=== PATIENT | female | born 1950 | race Caucasian/White ===

== ENCOUNTER 2021-06-11 19:10 | Inpatient (IN) | payer MEDICARE, OTHER ==
[~2021-06-11] VITALS: Ht 162.6 cm; Wt 58.1 kg
--- NOTE | 2021-06-11 05:17 | NUR ---
Arrived via [place] at 2225. AOX4. On NRB mask at 15L, saturating at 93%. night monitor placed, shows Sinus Tachy and PAC Pacing. No signs of acute distress. HOB elevated. Able to make needs known. IV in R AC intact, patent and saline flushed. Admission packet completed. Call lights within reach. Safety measures maintained. Addendum: 06/12/21 at 0825 by ELISA HASTINGS RN Wrong date documented
--- NOTE | 2021-06-11 19:20 | NUR ---
DR AVILES AT BEDSIDE FOR MSE.
[2021-06-11 19:45] LABS: ABG BASE EXCESS 1.4 mmol/L; ABG HCO3 22.7 mmol/L; ABG PCO2 28.4 mmHg (35.0-45.0); ABG PH 7.521 (7.350-7.450); ABG PO2 65.3 mmHg (75.0-100.0); ABG SITE LEFT RADIAL; ABG TOTAL HEMOGLOBIN 16.9 G/dL (12.0-16.0); COHb 1.4 % (0.5-1.5); MetHb 0.2 % (0.0-1.5); O2Hb 92.5 % (94.0-97.0); VENT MODE Nasal Cannula
[2021-06-11] MEDS ORDERED: PITA4TAB PO (19:48)
[2021-06-11] MEDS ORDERED: BUPR-53 PO (19:48)
[2021-06-11] MEDS ORDERED: BUPR-319 PO (19:48)
[2021-06-11] MEDS ORDERED: ALEN70TA80 PO (19:48)
[2021-06-11] MEDS ORDERED: LEVO137T2 PO (19:48)
[2021-06-11] MEDS ORDERED: LOSA50TA39 PO (19:48)
[2021-06-11] MEDS ORDERED: EMPA10TA PO (19:48)
[2021-06-11] MEDS ORDERED: ATEN25TA PO (19:48)
[2021-06-11] MEDS ORDERED: LEVO125T8 PO (19:48)
[2021-06-11] MEDS ORDERED: TRAZ-182 PO (19:48)
[2021-06-11] MEDS ORDERED: LAMO100T17 PO (19:48)
[2021-06-11] MEDS ORDERED: MIRT-93 PO (19:48)
[2021-06-11] MEDS ORDERED: NYST5ORA PO (19:50)
[2021-06-11] MEDS ORDERED: FLUC150T PO (19:50)
[2021-06-11 20:13] LABS: HEMATOCRIT 48.9 % (31.2-41.9); MEAN CORPUSCULAR HEMOGLOBIN 29.7 uug (24.7-32.8); MEAN CORPUSCULAR VOLUME 86.7 fL (75.5-95.3); PLATELET COUNT (AUTO) 299 K/uL (179-408)
--- NOTE | 2021-06-11 20:13 | NUR ---
PER ERMD, PATIENT IS DNI, UNLESS HER HEART STOPS. VERBALIZED BY BOTH PATIENT AND CONFIRMED BY DTR. CALLED EPIC FOR PANEL CALL AT THIS TIME, ON HOLD.
[2021-06-11] MEDS ORDERED: levoFLOXacin 750 MG/D5W 150 ML PIGGYBACK IV ONE (20:15)
--- NOTE | 2021-06-11 20:15 | NUR ---
DR CASTILLO WILL CALL BACK.
[2021-06-11] MEDS ORDERED: levoFLOXacin 750MG/D5W 150 ML IV ONE (20:31)
[2021-06-11 20:34] LABS: ALANINE AMINOTRANSFERASE < 6 U/L (14-59); ALKALINE PHOSPHATASE 122 U/L (50-136); ASPARTATE AMINOTRANSFERASE 28 U/L (15-37); BILIRUBIN,DIRECT < 0.1 mg/dL (0.0-0.2); BILIRUBIN,TOTAL 1.2 mg/dL (0.2-1.0); CARBON DIOXIDE 25 mmol/L (21-32); CHLORIDE 97 mmol/L (98-107); CREATINE KINASE, TOTAL 27 U/L (26-192); CREATININE 0.8 mg/dL (0.6-1.3); GLUCOSE 249 mg/dL (74-106); LACTATE DEHYDROGENASE 381 U/L (81-234); POTASSIUM 3.5 mmol/L (3.5-5.1); TOTAL PROTEIN, SERUM 7.1 g/dL (6.4-8.2); UREA NITROGEN, BLOOD 19 mg/dL (7-18)
[2021-06-11 20:40] LABS: FERRITIN 863 ng/mL (8-252)
--- NOTE | 2021-06-11 20:45 | NUR ---
320 GIVEN BY 3RD FLOOR ROOM. HOWEVER, AT THIS TIME, DR. AVILES IS AT BEDSIDE SPEAKING WITH PATIENT AND FAMILY FOR DECISIONS WITH AMA.
--- NOTE | 2021-06-11 21:11 | NUR ---
PATIENT'S FAMILY HAS DECIDED TO KEEP PATIENT. [facility] PAGED. PENDING CALL BACK. PT DESATURATES ON NASAL CANNULA, ATTEMPTED TO PUT ON FACEMASK, 10 LPM, BUT SPO2 REMAINS 90% AND BELOW. PATIENT PLACED ON 15LPM NON REBREATHER MASK.
--- NOTE | 2021-06-11 21:20 | NUR ---
DR CASTILLO S/W DR. AVILES. ADMITTED TO [facility] FOR COVID 19 PNEUMONIA. BELONGINGS LIST COMPLETED.
--- NOTE | 2021-06-11 21:25 | NUR ---
ATTEMPT TO CALL REPORT, FLOOR RN WILL CALL ME BACK.
--- NOTE | 2021-06-11 21:47 | NUR ---
REPORT GIVEN TO ELISA HENRY.
--- NOTE | 2021-06-11 21:51 | NUR ---
PATIENT READY TO GO UPSTAIRS, PENDING PAPER WORK.
[2021-06-11] MEDS ORDERED: MORPHINE SULFATE 2 MG/1 ML DISP.SYRIN IV PRN (22:00)
[2021-06-11] MEDS ORDERED: ONDANSETRON 4 MG/2 ML VIAL IV PRN (22:00)
[2021-06-11] MEDS ORDERED: AZITHROMYCIN IV 500 MG in IV DEXTROSE 5% 250 ML IV SCH (22:00)
--- NOTE | 2021-06-11 22:20 | NUR ---
PAPERWORKS READY, ABOUT TO TRANSFER PT. RECEIVED CALL FROM PATIENT'S DTR JOCELYN REQUESTING TO KNOW D-DIMER LEVELS. WITH PT'S CONSENT, PROVIDED INFORMATION. DTR DEMANDING PT BE STARTED ON ASPIRIN 325 MG AND LOVENOX. INFOMRED HER THAT THIS RN IS IN PROCESS OF TRANSPORTING PT TO ROOM. WILL COMMUNICATE TO PRIMARY NURSE.
--- NOTE | 2021-06-11 22:21 | NUR ---
DR AVILES ORDERED DECADRON 6 MG IV PUSH. PT ALREADY OFF ER BOARD. WANTS PT TO RECEIVE MED BEFORE TRANSFER. INVENTORY MED DONE, AND ADMINISTERED MED ORDERED. NOTE TO PHARMACY PROVIDED IN ED RETURN BOX.
[2021-06-11] MEDS ORDERED: DEXAMETHASONE SOD PHOSPHATE 4 MG INJ IV SCH (22:30)
--- NOTE | 2021-06-11 22:30 | NUR ---
PT TRANSFERRED TO ROOM 320. WARM HANDOFF TO ELISA HENRY. PT STABLE THROUGHOUT TRANSFER. ALL BELONGINGS WITH PATIENT.
[2021-06-11] MEDS ORDERED: AZITHROMYCIN 500MG/ D5W 250ML IVPB **ER PYXIS ONLY IV ONE (23:36)
[2021-06-12] VITALS: BP 135/70
[2021-06-12] MEDS: MIRTAZAPINE 15 MG TABLET PO SCH ×2 (00:06→20:58)
[2021-06-12 04:00] VITALS: BP_SYST 135; BP_SYST 143; BP_DIAS 70; BP_DIAS 81
--- NOTE | 2021-06-12 05:17 | NUR ---
Arrived via [facility] at 2225. AOX4. On NRB mask at 15L, saturating at 93%. traffic monitor specialist placed, shows Sinus Tachy and PAC Pacing. No signs of acute distress. HOB elevated. Able to make needs known. IV in R AC intact, patent and saline flushed. Admission packet completed. Call lights within reach. Safety measures maintained.
[2021-06-12] MEDS ORDERED: TRAZODONE 100 MG TABLET PO SCH (05:45)
[2021-06-12] MEDS: LEVOTHYROXINE SODIUM 125 MCG TABLET PO SCH ×2 (06:11→07:23)
[2021-06-12 06:48] LABS: MEAN CORPUSCULAR HEMOGLOBIN 29.7 uug (24.7-32.8); MEAN CORPUSCULAR VOLUME 87.4 fL (75.5-95.3); PLATELET COUNT (AUTO) 216 K/uL (179-408)
[2021-06-12 07:17] LABS: BILIRUBIN,TOTAL 0.9 mg/dL (0.2-1.0); CREATININE 0.6 mg/dL (0.6-1.3); PHOSPHOROUS 3.2 mg/dL (2.5-4.9); POTASSIUM 3.7 mmol/L (3.5-5.1)
[2021-06-12 07:48] LABS: THYROID STIMULATING HORMONE 0.876 mIU/mL (0.358-3.740)
--- NOTE | 2021-06-12 08:00 | NUR ---
Received awake in bed no resp distress. Alert and oriented x3. On nrm 15 Lpm O2 sat 92-93%. Asked for water and was provided. Iv is intact. Patient is comfortable. Denies pain or sob. Safety maintained. Cont to monitor. Addendum: 06/12/21 at 0813 by TERRY SERNA RN Spoke with jimmy Salcido and was updated on condition.
[2021-06-12] MEDS ORDERED: ASCORBIC ACID 500 MG TABLET PO SCH ×2 (09:00→13:30)
[2021-06-12] MEDS ORDERED: buPROPion XL 150 MG TAB.SR.24H PO SCH ×2 (09:00→14:04)
[2021-06-12] MEDS ORDERED: Empagliflozin (Jardiance) 10 MG) PO SCH (09:00)
[2021-06-12] MEDS ORDERED: ENOXAPARIN SODIUM 40 MG/0.4 ML DISP.SYRIN SQ SCH ×2 (09:00→14:00)
[2021-06-12] MEDS: DEXAMETHASONE SOD PHOSPHATE 4 MG INJ IV SCH ×2 (09:34→21:04)
[2021-06-12] MEDS: PANTOPRAZOLE SODIUM 40 MG TABLET.DR PO SCH (09:34)
[2021-06-12] MEDS: CHOLECALCIFEROL 1,000 UNIT TABLET PO SCH (09:35)
[2021-06-12] MEDS: LOSARTAN POTASSIUM 50 MG TABLET PO SCH (09:35)
[2021-06-12] MEDS: ATENOLOL 25 MG TABLET PO SCH (09:35)
--- NOTE | 2021-06-12 11:20 | NUR ---
Returned call made to nadya Rivera but no answer. Left voicemail. Lindsay Dahl Car Sales Associate also aware of son and dtr's requests to call them and was provided with their numbers. Addendum: 06/12/21 at 1133 by TERRY SERNA RN Spoke to nadya Rivera and was updated on condition. he was appreciative.
[2021-06-12] MEDS ORDERED: CHOLECALCIFEROL 1,000 UNIT TABLET PO SCH (13:30)
[2021-06-12 13:31] VITALS: BP 128/72
[2021-06-12] MEDS ORDERED: SWABABLE VALVE TRANSFER SET EA MC ONE (13:49)
[2021-06-12] MEDS ORDERED: IOHEXOL 350 100 ML INFUS..BTL ONE (13:49)
[2021-06-12] MEDS ORDERED: IV NORMAL SALINE 250 ML IV ONE (13:49)
--- NOTE | 2021-06-12 14:10 | NUR ---
verified informed consent with jim owen dtr for cta chest witnessed by ciera HENRY
[2021-06-12] MEDS: ACIDOPHILUS/BULGARICUS CHEW TAB PO SCH ×2 (14:41→22:00)
[2021-06-12] MEDS: NYSTATIN SUSPENSION 5 ML LIQUID UDC PO SCH ×2 (14:42→16:00)
[2021-06-12] MEDS: ZINC SULFATE 220 MG CAPSULE PO SCH (14:42)
[2021-06-12] MEDS ORDERED: buPROPion XL 150 MG TAB.SR.24H PO ONE (14:45)
--- NOTE | 2021-06-12 14:55 | NUR ---
radiology made aware pt is ready for cta. RTs elena and bessie aware one RT to go with the patient.
[2021-06-12 16:00] VITALS: BP 130/70
[2021-06-12] MEDS: DOXYCYCLINE HYCLATE IV 100 MG in IV DEXTROSE 5% 100 ML IV SCH (16:00)
[2021-06-12] MEDS ORDERED: DEXTROSE 50% 50 ML DISP.SYRIN IV PRN (16:00)
--- NOTE | 2021-06-12 16:25 | NUR ---
per jose at pharmacy no need to hold jardiance s/p cta. pharmacy also made aware that per dtr's info fosamax taken on wednesdays.
[2021-06-12] MEDS ORDERED: ALENDRONATE SODIUM 70 MG TABLET PO ONE (16:30)
[2021-06-12] MEDS: BLOOD SUGAR DIAGNOSTIC 1 EACH STRIP VI SCH ×2 (17:11→21:35)
--- NOTE | 2021-06-12 17:23 | NUR ---
bs noted 366 mg/dl. patient is adamantly refusing insulin as ordered. r/b explained and still refusing. manpower development manager [facility] is made aware. no s/sx of hyperglycemia noted. will cont to monitor.
--- NOTE | 2021-06-12 17:38 | NUR ---
relayed cta result to return checker [facility] no new orders received at this time.
--- NOTE | 2021-06-12 18:18 | NUR ---
prefers sitting up on commode. on nrm 15Lpm. o2 sat 95-97% when at rest, desats to mid 80s when she takes off mask. st w/ pac on telemonitor. needs attended. will cont to monitor.
--- NOTE | 2021-06-12 19:30 | NUR ---
Patient is AAO x4. Noted with moist cough, on 15 02 via non rebreather mask, 02 sats 93%. Telemetry is NSR. Patient on left side. Midline to left upper arm is noted, intact and patent. Right fa saline lock is patent and intact. Patient is comfortable, denies any pain. Safety measures initiated, call light within reach.
[2021-06-12 20:00] VITALS: BP 142/52
[2021-06-12] MEDS: LAMOTRIGINE 100 MG TABLET PO SCH (20:58)
[2021-06-12] MEDS: TRAZODONE 100 MG TABLET PO SCH (20:59)
[2021-06-12] MEDS ORDERED: TRAZODONE 50 MG TABLET PO SCH (21:00)
[2021-06-12] MEDS ORDERED: AZITHROMYCIN 250 MG TABLET PO SCH (21:00)
--- NOTE | 2021-06-12 21:30 | NUR ---
Patient DTR called and spent 30 minutes on the phone rosa corrales nurse for patient update and DTR requests. All needs met. Also, brought legal papers for patient to sign. paper dropped off, signed and returned to DTR.
[2021-06-12] MEDS: INSULIN REGULAR, HUMAN 300 UNIT/3 ML VIAL SQ PRN (21:33)
[2021-06-12] MEDS: ENOXAPARIN SODIUM 60 MG/0.6 ML DISP.SYRIN SQ SCH (21:36)
--- NOTE | 2021-06-12 23:45 | NUR ---
Attempted to wean patient to 14 liters 02 via non rebreather but unable to,patient 02 sats drops to 88%. Returned to 15L via non rebreather mask and 02 sats returned to 92-93%. DTR called and updated. Requests to add ASA 325 QD, vitamin b complex, a higher dose of corticosteroids or switch to prednisone, also for repeat ABG.
[2021-06-13] VITALS: BP 104/54
[2021-06-13] MEDS: DOXYCYCLINE HYCLATE IV 100 MG in IV DEXTROSE 5% 100 ML IV SCH ×2 (02:30→13:14)
[2021-06-13 04:00] VITALS: BP 102/51
[2021-06-13] MEDS: ACIDOPHILUS/BULGARICUS CHEW TAB PO SCH ×3 (06:06→22:06)
[2021-06-13] MEDS: LEVOTHYROXINE SODIUM 125 MCG TABLET PO SCH (06:06)
--- NOTE | 2021-06-13 06:44 | NUR ---
Patient is stable, provided specimen cup for sputum, unable to collect. Remains on 02 at 15L via non rebreather, 02 sats 91-2. telemetry reading is NRS with frequesnt PVC at 80 BPM.
[2021-06-13 06:51] LABS: HEMATOCRIT 42.8 % (31.2-41.9); MEAN CORPUSCULAR VOLUME 87.3 fL (75.5-95.3); PLATELET COUNT (AUTO) 223 K/uL (179-408)
[2021-06-13] MEDS: BLOOD SUGAR DIAGNOSTIC 1 EACH STRIP VI SCH ×4 (06:53→20:32)
[2021-06-13 07:25] LABS: THYROID STIMULATING HORMONE 0.209 mIU/mL (0.358-3.740)
[2021-06-13 07:29] LABS: CARBON DIOXIDE 26 mmol/L (21-32); CHLORIDE 102 mmol/L (98-107); CREATININE 0.5 mg/dL (0.6-1.3); GLUCOSE 288 mg/dL (74-106); POTASSIUM 4.2 mmol/L (3.5-5.1); UREA NITROGEN, BLOOD 20 mg/dL (7-18)
[2021-06-13 08:00] VITALS: BP 119/68
[2021-06-13 08:58] LABS: BILIRUBIN,DIRECT 0.3 mg/dL (0.0-0.2); BILIRUBIN,TOTAL 0.7 mg/dL (0.2-1.0); MAGNESIUM 2.3 mg/dL (1.8-2.4); PHOSPHOROUS 3.5 mg/dL (2.5-4.9); TOTAL PROTEIN, SERUM 5.9 g/dL (6.4-8.2)
[2021-06-13] MEDS: LOSARTAN POTASSIUM 50 MG TABLET PO SCH (09:00)
[2021-06-13] MEDS ORDERED: Medication Not On Formulary EA (Bupropion Hcl (Bupropion Xl) 300 MG) PO SCH (09:00)
[2021-06-13] MEDS: DEXAMETHASONE SOD PHOSPHATE 4 MG INJ IV SCH ×2 (10:21→20:22)
[2021-06-13] MEDS: PANTOPRAZOLE SODIUM 40 MG TABLET.DR PO SCH (10:26)
[2021-06-13] MEDS: buPROPion XL 150 MG TAB.SR.24H PO SCH (10:26)
[2021-06-13] MEDS: ATENOLOL 25 MG TABLET PO SCH (10:26)
[2021-06-13] MEDS: CHOLECALCIFEROL 1,000 UNIT TABLET PO SCH (10:27)
[2021-06-13] MEDS: ASCORBIC ACID 500 MG TABLET PO SCH (10:27)
[2021-06-13] MEDS: ZINC SULFATE 220 MG CAPSULE PO SCH (10:27)
[2021-06-13] MEDS: NYSTATIN SUSPENSION 5 ML LIQUID UDC PO SCH ×2 (10:28→18:12)
[2021-06-13] MEDS: ENOXAPARIN SODIUM 60 MG/0.6 ML DISP.SYRIN SQ SCH ×2 (10:30→20:31)
[2021-06-13] MEDS: JARDIANCE 10 MG PO SCH (10:32)
[2021-06-13] MEDS: [UNRECOGNIZED DRUG - OTHER] PO SCH (10:32)
[2021-06-13] MEDS: INSULIN REGULAR, HUMAN 300 UNIT/3 ML VIAL SQ PRN ×4 (10:33→20:33)
[2021-06-13 11:42] LABS: ABG BASE EXCESS 1.8 mmol/L; ABG HCO3 24.7 mmol/L; ABG PH 7.479 (7.350-7.450); ABG SITE LEFT RADIAL; ABG TOTAL HEMOGLOBIN 15.3 G/dL (12.0-16.0); COHb 0.5 % (0.5-1.5); MetHb 0.1 % (0.0-1.5); O2Hb 92.6 % (94.0-97.0)
[2021-06-13 12:00] VITALS: BP 115/57
[2021-06-13] MEDS: ASPIRIN 81 MG TAB.CHEW PO SCH (13:06)
[2021-06-13] MEDS: CYANOCOBALAMIN 1,000 MCG TABLET PO SCH (13:06)
[2021-06-13 16:00] VITALS: BP 91/41
--- NOTE | 2021-06-13 16:51 | NUR ---
Pt is a/o x 4, sinus rhythm to sinus tachy on telemetry. Pt is on 15L non rebreather, saturating 93-95%. Spoke with pt daughter and voiced her concerns to MD. Pt cooperative, comfort measures provided, call light within reach. Pt able to ambulate from bed to bedside commode. Will continue to monitor.
[2021-06-13] MEDS ORDERED: TOCILIZUMAB 400 MG in IV NORMAL SALINE 80 ML IV ONE (18:30)
--- NOTE | 2021-06-13 19:30 | NUR ---
Patient is in bed, comfortable. AAO x4, denies any pain or discomfort. Continues on 15 L 02 via non rebreather, 02 sats 93. telemetry reading is NSR with PAC's, HR 66. Still noted with Moist cough, day shift collected small amount of sputum but not enough for culture. Will attempt to collect sputum this shift. Patient assisted to bedside commode. Gait is unsteady. Call light within reach, safety measures in place.
[2021-06-13 20:00] VITALS: BP 135/62
[2021-06-13] MEDS: MIRTAZAPINE 15 MG TABLET PO SCH (20:22)
[2021-06-13] MEDS: TRAZODONE 100 MG TABLET PO SCH (20:22)
[2021-06-13] MEDS: LAMOTRIGINE 100 MG TABLET PO SCH (20:22)
--- NOTE | 2021-06-13 23:00 | NUR ---
02 sats are 94-95 on 15L non rebreather mask, attempted to wean oxygen but patient states MD told her not to wean today to try tomorrow. No weaning provided.
[2021-06-14] VITALS: BP 117/51
[2021-06-14] MEDS: DOXYCYCLINE HYCLATE IV 100 MG in IV DEXTROSE 5% 100 ML IV SCH ×2 (01:38→14:14)
[2021-06-14 04:00] VITALS: BP 108/61
[2021-06-14 06:07] LABS: ABG BASE EXCESS 1.4 mmol/L; ABG HCO3 22.4 mmol/L; ABG PCO2 26.2 mmHg (35.0-45.0); ABG PH 7.549 (7.350-7.450); ABG PO2 75.1 mmHg (75.0-100.0); ABG SITE LEFT RADIAL; ABG TOTAL HEMOGLOBIN 14.5 G/dL (12.0-16.0); COHb 0.4 % (0.5-1.5); MetHb 0.2 % (0.0-1.5); O2Hb 95.7 % (94.0-97.0)
[2021-06-14] MEDS: BLOOD SUGAR DIAGNOSTIC 1 EACH STRIP VI SCH ×4 (06:33→22:26)
[2021-06-14] MEDS: ACIDOPHILUS/BULGARICUS CHEW TAB PO SCH ×3 (06:34→21:52)
[2021-06-14 06:45] LABS: HEMATOCRIT 41.5 % (31.2-41.9); MEAN CORPUSCULAR VOLUME 87.8 fL (75.5-95.3); PLATELET COUNT (AUTO) 254 K/uL (179-408)
[2021-06-14 06:53] LABS: PHOSPHOROUS 3.3 mg/dL (2.5-4.9)
[2021-06-14 06:54] LABS: CREATININE 0.6 mg/dL (0.6-1.3); POTASSIUM 4.1 mmol/L (3.5-5.1)
--- NOTE | 2021-06-14 06:59 | NUR ---
Sputum collected this shift. No significant changes this shift. ABG and labs drawn this am. Right AC IV removed since it is dislodged. All needs attended, call light within reach.
[2021-06-14] MEDS: DEXAMETHASONE SOD PHOSPHATE 4 MG INJ IV SCH ×2 (08:45→21:57)
[2021-06-14] MEDS: ASPIRIN 81 MG TAB.CHEW PO SCH (08:45)
[2021-06-14] MEDS: ZINC SULFATE 220 MG CAPSULE PO SCH (08:46)
[2021-06-14] MEDS: NYSTATIN SUSPENSION 5 ML LIQUID UDC PO SCH ×2 (08:46→17:46)
[2021-06-14] MEDS: ASCORBIC ACID 500 MG TABLET PO SCH (08:46)
[2021-06-14] MEDS: CHOLECALCIFEROL 1,000 UNIT TABLET PO SCH (08:46)
[2021-06-14] MEDS: buPROPion XL 150 MG TAB.SR.24H PO SCH (08:47)
[2021-06-14] MEDS: CYANOCOBALAMIN 1,000 MCG TABLET PO SCH (08:47)
[2021-06-14] MEDS: PANTOPRAZOLE SODIUM 40 MG TABLET.DR PO SCH (08:48)
[2021-06-14] MEDS: LOSARTAN POTASSIUM 50 MG TABLET PO SCH (08:52)
[2021-06-14] MEDS: ENOXAPARIN SODIUM 60 MG/0.6 ML DISP.SYRIN SQ SCH ×2 (09:00→21:56)
[2021-06-14] MEDS: [UNRECOGNIZED DRUG - OTHER] PO SCH (09:14)
[2021-06-14] MEDS: INSULIN REGULAR, HUMAN 300 UNIT/3 ML VIAL SQ PRN ×4 (09:14→22:19)
[2021-06-14] MEDS: JARDIANCE 10 MG PO SCH (09:14)
[2021-06-14 10:00] VITALS: BP 114/53
[2021-06-14] MEDS: ATENOLOL 25 MG TABLET PO SCH (10:47)
[2021-06-14 17:21] VITALS: BP 134/72
[2021-06-14] MEDS: GLUCERNA SHAKE 237 ML CAN PO SCH (17:46)
[2021-06-14] MEDS ORDERED: LINA1TAB5 PO ×2 (19:29→19:32)
[2021-06-14 20:00] VITALS: BP 121/69
[2021-06-14] MEDS: JENTADUETO PO SCH (21:51)
[2021-06-14] MEDS: TRAZODONE 100 MG TABLET PO SCH (21:52)
[2021-06-14] MEDS: MIRTAZAPINE 15 MG TABLET PO SCH (21:55)
[2021-06-14] MEDS: LAMOTRIGINE 100 MG TABLET PO SCH (21:57)
[2021-06-14] MEDS: INSULIN GLARGINE,HUM 300 UNITS/3 ML CARTRIDGE SQ SCH (22:06)
[2021-06-15 00:24] VITALS: BP 103/56
[2021-06-15 04:00] VITALS: BP 129/76
[2021-06-15 06:00] LABS: ABG BASE EXCESS 0.8 mmol/L; ABG HCO3 23.7 mmol/L; ABG PCO2 33.2 mmHg (35.0-45.0); ABG PH 7.472 (7.350-7.450); ABG PO2 98.6 mmHg (75.0-100.0); ABG SITE LEFT RADIAL; ABG TOTAL HEMOGLOBIN 15.1 G/dL (12.0-16.0); COHb 0.3 % (0.5-1.5); MetHb 0.1 % (0.0-1.5); O2Hb 97.3 % (94.0-97.0)
[2021-06-15] MEDS: ACIDOPHILUS/BULGARICUS CHEW TAB PO SCH ×3 (06:26→22:10)
[2021-06-15] MEDS: BLOOD SUGAR DIAGNOSTIC 1 EACH STRIP VI SCH ×4 (06:27→20:43)
--- NOTE | 2021-06-15 06:27 | NUR ---
ABG WAS DONE AT 06:00 ON NRB MASK @ 100%, AND HANDED TO FANI HALE DISABILITY PROGRAM NAVIGATOR Addendum: 06/15/21 at 0628 by STEPHENIE HALE RT Amended: Links added.
[2021-06-15 06:56] LABS: HEMATOCRIT 45.9 % (31.2-41.9); MEAN CORPUSCULAR HEMOGLOBIN 28.7 uug (24.7-32.8); MEAN CORPUSCULAR VOLUME 88.3 fL (75.5-95.3); PLATELET COUNT (AUTO) 261 K/uL (179-408)
[2021-06-15 07:12] LABS: CREATININE 0.6 mg/dL (0.6-1.3); POTASSIUM 4.3 mmol/L (3.5-5.1)
[2021-06-15 07:29] LABS: BILIRUBIN,DIRECT 0.4 mg/dL (0.0-0.2); BILIRUBIN,TOTAL 0.9 mg/dL (0.2-1.0)
[2021-06-15] MEDS: DEXAMETHASONE SOD PHOSPHATE 4 MG INJ IV SCH ×2 (09:22→20:30)
[2021-06-15] MEDS: ASPIRIN 81 MG TAB.CHEW PO SCH (09:22)
[2021-06-15] MEDS: CHOLECALCIFEROL 1,000 UNIT TABLET PO SCH (09:23)
[2021-06-15] MEDS: CYANOCOBALAMIN 1,000 MCG TABLET PO SCH (09:23)
[2021-06-15] MEDS: ASCORBIC ACID 500 MG TABLET PO SCH (09:23)
[2021-06-15] MEDS: ZINC SULFATE 220 MG CAPSULE PO SCH (09:23)
[2021-06-15] MEDS: buPROPion XL 150 MG TAB.SR.24H PO SCH (09:24)
[2021-06-15] MEDS: ENOXAPARIN SODIUM 60 MG/0.6 ML DISP.SYRIN SQ SCH ×2 (09:26→22:00)
[2021-06-15] MEDS: [UNRECOGNIZED DRUG - OTHER] PO SCH (09:27)
[2021-06-15] MEDS: JARDIANCE 10 MG PO SCH (09:27)
[2021-06-15] MEDS: PANTOPRAZOLE SODIUM 40 MG TABLET.DR PO SCH (09:28)
[2021-06-15] MEDS: NYSTATIN SUSPENSION 5 ML LIQUID UDC PO SCH ×2 (09:28→17:07)
[2021-06-15] MEDS: JENTADUETO PO SCH ×2 (09:29→20:30)
[2021-06-15] MEDS: GLUCERNA SHAKE 237 ML CAN PO SCH ×2 (09:32→17:07)
[2021-06-15] MEDS: LOSARTAN POTASSIUM 50 MG TABLET PO SCH (09:36)
--- NOTE | 2021-06-15 09:59 | NUR ---
Attempted to pull Atenolol from pyxis but given message of cancelled remove. Notified pharmacy of situation. Pharmacy to bring up atenolol. Will notify pharmacy of issue again when it happens.
[2021-06-15] MEDS: ATENOLOL 25 MG TABLET PO SCH (10:36)
--- NOTE | 2021-06-15 11:34 | NUR ---
Patient pulled of midline. Will attempt to start peripheral line.
[2021-06-15] MEDS: INSULIN REGULAR, HUMAN 300 UNIT/3 ML VIAL SQ PRN ×3 (11:39→22:01)
[2021-06-15 11:51] VITALS: BP 101/49
--- NOTE | 2021-06-15 12:00 | NUR ---
Multiple attempts to start IV line. Notified house mother, Jessica of need for midline. Midline to be placed this afternoon.
--- NOTE | 2021-06-15 15:36 | NUR ---
Midline placed. PHYLLIS 18G.
[2021-06-15 16:58] VITALS: BP 110/51
[2021-06-15 17:56] LABS: *BILIRUBIN,URIN NEGATIVE (NEGATIVE); *BLOOD, URINE NEGATIVE (NEGATIVE); *CLARITY,URINE CLEAR (CLEAR); *COLOR,URINE YELLOW (YELLOW); *KETONES,URINE 1+ (NEGATIVE); LEUKOCYTE ESTERASE ,URINE NEGATIVE (NEGATIVE); NITRITE, URINE NEGATIVE (NEGATIVE); PH,URINE 6.5 (5.0-8.0); UGLUCOSE NEGATIVE (NEGATIVE)
--- NOTE | 2021-06-15 18:50 | NUR ---
Patient received care well today. Titrated from 15L down to 13L with patient saturating between 96-98%. Patient tends to take off mask and must be reminded to put back on. Patient resting in bed comfortably with no signs of distress or discomfort. IV site intact and patent. Bed left in lowest position. Will endorse information to PM nurse.
--- NOTE | 2021-06-15 19:50 | NUR ---
Received patient lying in bed. AAOX3, appears unkempt and agitated. On 15L O2, via non-rebreather mask, saturating at 100%. Plan is to titrate down overnight. On telemonitor, showing sinus rhythm. Safety measures initiated. Will continue to monitor.
[2021-06-15 20:09] VITALS: BP 139/75
[2021-06-15] MEDS: MIRTAZAPINE 15 MG TABLET PO SCH (20:30)
[2021-06-15] MEDS: LAMOTRIGINE 100 MG TABLET PO SCH (20:30)
[2021-06-15] MEDS: ACETAMINOPHEN 325 MG TABLET PO PRN (20:31)
[2021-06-15] MEDS: TRAZODONE 100 MG TABLET PO SCH (21:06)
[2021-06-15] MEDS: INSULIN GLARGINE,HUM 300 UNITS/3 ML CARTRIDGE SQ SCH (21:59)
[2021-06-16 00:03] VITALS: BP 124/68
--- NOTE | 2021-06-16 00:05 | NUR ---
Patient removed mask to eat, frequently snacks at night. Patient needs to be reminded to wear mask.
--- NOTE | 2021-06-16 01:20 | NUR ---
Patient desats down to 75%, refused to put no-rebreather mask on, advised that she still wants to eat. Put on 6L O2, saturating in mid 80's. Will continue to monitor.
[2021-06-16 04:12] VITALS: BP 110/62
[2021-06-16] MEDS: ACETAMINOPHEN 325 MG TABLET PO PRN (05:00)
[2021-06-16] MEDS: ACIDOPHILUS/BULGARICUS CHEW TAB PO SCH ×4 (05:56→21:22)
--- NOTE | 2021-06-16 06:29 | NUR ---
Patient slept intermittently through the night with frequent episodes of restlessness. On 10L O2 via NC, saturating at 95-96%. On telemonitor, showing SR with HR of 76bpm. Compliant with medication regimen, however, close nurse supervision required. AC Blood sugar was 317mg/dl, covered through 8 units of insulin. Educated patient regarding diabetic diet, pt was passively listening. All needs attended to and met. Safety precautions maintained. Will endorse to day shift.
[2021-06-16] MEDS: BLOOD SUGAR DIAGNOSTIC 1 EACH STRIP VI SCH ×4 (06:31→21:22)
[2021-06-16] MEDS: INSULIN REGULAR, HUMAN 300 UNIT/3 ML VIAL SQ PRN ×4 (06:32→21:23)
[2021-06-16 07:04] LABS: HEMATOCRIT 43.7 % (31.2-41.9); MEAN CORPUSCULAR HEMOGLOBIN 29.3 uug (24.7-32.8); MEAN CORPUSCULAR VOLUME 88.9 fL (75.5-95.3); PLATELET COUNT (AUTO) 231 K/uL (179-408)
[2021-06-16 07:37] LABS: CREATININE 0.6 mg/dL (0.6-1.3); POTASSIUM 4.6 mmol/L (3.5-5.1)
--- NOTE | 2021-06-16 08:00 | NUR ---
PT tolerating NRB on 10 lit with sat of 97%. PT denies any c/o pain. WAN LE's +1 - legs elevated. Encouraged pt to use deep breathing and IS. Pt able to return demonstrate proper use of IS. Call light is within reach.
[2021-06-16] MEDS: CHOLECALCIFEROL 1,000 UNIT TABLET PO SCH ×2 (09:00→09:09)
[2021-06-16] MEDS: CYANOCOBALAMIN 1,000 MCG TABLET PO SCH ×2 (09:00→09:10)
[2021-06-16] MEDS: JENTADUETO PO SCH ×3 (09:00→20:18)
[2021-06-16] MEDS: JARDIANCE 10 MG PO SCH ×2 (09:00→09:13)
[2021-06-16] MEDS: ATENOLOL 25 MG TABLET PO SCH ×2 (09:00→09:19)
[2021-06-16] MEDS: ASCORBIC ACID 500 MG TABLET PO SCH ×2 (09:00→09:09)
[2021-06-16] MEDS: [UNRECOGNIZED DRUG - OTHER] PO SCH ×2 (09:00→09:13)
[2021-06-16] MEDS: LOSARTAN POTASSIUM 50 MG TABLET PO SCH ×2 (09:00→09:18)
[2021-06-16] MEDS: ASPIRIN 81 MG TAB.CHEW PO SCH (09:09)
[2021-06-16] MEDS: PANTOPRAZOLE SODIUM 40 MG TABLET.DR PO SCH (09:10)
[2021-06-16] MEDS: ZINC SULFATE 220 MG CAPSULE PO SCH (09:10)
[2021-06-16] MEDS: buPROPion XL 150 MG TAB.SR.24H PO SCH (09:10)
[2021-06-16] MEDS: GLUCERNA SHAKE 237 ML CAN PO SCH ×2 (09:12→15:57)
[2021-06-16] MEDS: DEXAMETHASONE SOD PHOSPHATE 4 MG INJ IV SCH ×2 (09:12→20:17)
[2021-06-16] MEDS: ENOXAPARIN SODIUM 60 MG/0.6 ML DISP.SYRIN SQ SCH ×2 (09:17→20:22)
[2021-06-16] MEDS: NYSTATIN SUSPENSION 5 ML LIQUID UDC PO SCH ×2 (09:19→15:49)
[2021-06-16 12:00] VITALS: BP 129/68
[2021-06-16] MEDS: ALBUTEROL SULFATE 8 GM HFA.AER.AD IH PRN ×2 (13:09→17:54)
[2021-06-16 16:00] VITALS: BP 158/42
--- NOTE | 2021-06-16 19:30 | NUR ---
Received pt awake, alert and orientedx4. Pt in no acute distress.Pt can make her needs known.Pt on 12l NOnrebreather mask. Pt iv intact. Safety and comfort provided. Will continue to monitor.
[2021-06-16] MEDS: TRAZODONE 100 MG TABLET PO SCH (20:17)
[2021-06-16] MEDS: LAMOTRIGINE 100 MG TABLET PO SCH (20:18)
[2021-06-16] MEDS: MIRTAZAPINE 15 MG TABLET PO SCH (20:18)
[2021-06-16] MEDS: INSULIN GLARGINE,HUM 300 UNITS/3 ML CARTRIDGE SQ SCH (20:23)
[2021-06-16 20:51] VITALS: BP 103/60
--- NOTE | 2021-06-16 23:36 | NUR ---
Called daughter Loly for an update regarding her mother.
[2021-06-17 00:32] VITALS: BP 110/52
[2021-06-17 04:56] VITALS: BP 102/66
[2021-06-17] MEDS: ACIDOPHILUS/BULGARICUS CHEW TAB PO SCH ×3 (05:41→22:18)
[2021-06-17 06:25] LABS: HEMATOCRIT 41.7 % (31.2-41.9); MEAN CORPUSCULAR HEMOGLOBIN 29.3 uug (24.7-32.8); MEAN CORPUSCULAR VOLUME 88.1 fL (75.5-95.3); PLATELET COUNT (AUTO) 212 K/uL (179-408)
[2021-06-17] MEDS: BLOOD SUGAR DIAGNOSTIC 1 EACH STRIP VI SCH ×4 (06:40→21:54)
--- NOTE | 2021-06-17 06:41 | NUR ---
Pt slept intermittently. Pt in no acute distress. IV intact. Prescribed medication given and pt tolerated it well.Pt on 12L nonrebreather mask.Pt on sinus rhythm. Safety and comfort provided. All needs are met. Will endorse to incoming nurse for continuity of care.
[2021-06-17 07:59] LABS: CREATININE 0.6 mg/dL (0.6-1.3); POTASSIUM 4.7 mmol/L (3.5-5.1)
[2021-06-17] MEDS: ATENOLOL 25 MG TABLET PO SCH (09:00)
[2021-06-17] MEDS: ASPIRIN 81 MG TAB.CHEW PO SCH (09:00)
[2021-06-17] MEDS: ZINC SULFATE 220 MG CAPSULE PO SCH (09:00)
[2021-06-17] MEDS: ASCORBIC ACID 500 MG TABLET PO SCH (09:00)
[2021-06-17] MEDS ORDERED: buPROPion XL 150 MG TAB.SR.24H PO SCH (09:00)
[2021-06-17] MEDS: CHOLECALCIFEROL 1,000 UNIT TABLET PO SCH (09:00)
[2021-06-17] MEDS: buPROPion XL 150 MG TAB.SR.24H PO SCH (09:01)
[2021-06-17] MEDS: CYANOCOBALAMIN 1,000 MCG TABLET PO SCH (09:02)
[2021-06-17] MEDS: PANTOPRAZOLE SODIUM 40 MG TABLET.DR PO SCH (09:02)
[2021-06-17] MEDS: DEXAMETHASONE SOD PHOSPHATE 4 MG INJ IV SCH ×2 (09:02→20:36)
[2021-06-17] MEDS: JENTADUETO PO SCH ×2 (09:03→20:54)
[2021-06-17] MEDS: JARDIANCE 10 MG PO SCH (09:04)
[2021-06-17] MEDS: [UNRECOGNIZED DRUG - OTHER] PO SCH (09:04)
[2021-06-17] MEDS: LOSARTAN POTASSIUM 50 MG TABLET PO SCH (09:19)
[2021-06-17] MEDS: NYSTATIN SUSPENSION 5 ML LIQUID UDC PO SCH ×2 (09:27→17:15)
[2021-06-17] MEDS: GLUCERNA SHAKE 237 ML CAN PO SCH ×2 (09:28→17:15)
[2021-06-17] MEDS: ENOXAPARIN SODIUM 60 MG/0.6 ML DISP.SYRIN SQ SCH ×2 (10:05→20:38)
[2021-06-17 10:06] LABS: CRYPTOCOCCUS AB, SERUM Negative (Negative)
[2021-06-17 11:18] VITALS: BP 119/56
[2021-06-17] MEDS: INSULIN REGULAR, HUMAN 300 UNIT/3 ML VIAL SQ PRN ×2 (11:53→17:17)
[2021-06-17] MEDS ORDERED: ALPRAZOLAM 0.25 MG TABLET PO PRN (15:00)
[2021-06-17 15:16] VITALS: BP 108/62
--- NOTE | 2021-06-17 18:19 | NUR ---
Patient resting in bed. AOx4. On 12L nonrebreather mask, O2 sat at 94-96%. No signs of acute distress. Patient compliant with medications and care. NSR on air sampling and monitoring. IV access patent and intact. Needs anticipated and met. Bed alarm on. Call light within reach. Will endorse to incoming shift for continuity of care.
[2021-06-17 20:12] VITALS: BP 94/56
[2021-06-17] MEDS: TRAZODONE 100 MG TABLET PO SCH (20:36)
[2021-06-17] MEDS: MIRTAZAPINE 15 MG TABLET PO SCH (20:36)
[2021-06-17] MEDS: LAMOTRIGINE 100 MG TABLET PO SCH (20:36)
[2021-06-17] MEDS: INSULIN GLARGINE,HUM 300 UNITS/3 ML CARTRIDGE SQ SCH (21:00)
[2021-06-18 00:03] VITALS: BP 113/57
[2021-06-18 04:12] VITALS: BP 104/59
[2021-06-18] MEDS: ACIDOPHILUS/BULGARICUS CHEW TAB PO SCH ×3 (05:21→21:29)
[2021-06-18] MEDS: BLOOD SUGAR DIAGNOSTIC 1 EACH STRIP VI SCH ×4 (06:32→20:35)
[2021-06-18 06:49] LABS: HEMATOCRIT 47.5 % (31.2-41.9); MEAN CORPUSCULAR HEMOGLOBIN 28.8 uug (24.7-32.8); MEAN CORPUSCULAR VOLUME 88.3 fL (75.5-95.3); PLATELET COUNT (AUTO) 244 K/uL (179-408)
--- NOTE | 2021-06-18 06:54 | NUR ---
Patient AOx4.No c/o pain. On 12L nonrebreather mask,saturating at 95-97%,drop to mid 80's when patient is moving or using bedside commode. NSR on monitoring manager.Midline on right upper arm patent and intact.Compliant with medication and tx.All Needs anticipated and met. Call light within reach. Will endorse to incoming shift for continuity of care.
[2021-06-18 07:25] LABS: CREATININE 0.6 mg/dL (0.6-1.3); POTASSIUM 4.5 mmol/L (3.5-5.1)
[2021-06-18 07:46] LABS: MAGNESIUM 2.3 mg/dL (1.8-2.4); PHOSPHOROUS 3.4 mg/dL (2.5-4.9)
[2021-06-18] MEDS: NYSTATIN SUSPENSION 5 ML LIQUID UDC PO SCH ×2 (09:13→17:18)
[2021-06-18] MEDS: DEXAMETHASONE SOD PHOSPHATE 4 MG INJ IV SCH ×2 (09:14→20:34)
[2021-06-18] MEDS: ASPIRIN 81 MG TAB.CHEW PO SCH (09:15)
[2021-06-18] MEDS: buPROPion XL 150 MG TAB.SR.24H PO SCH (09:15)
[2021-06-18] MEDS: LOSARTAN POTASSIUM 50 MG TABLET PO SCH (09:15)
[2021-06-18] MEDS: ASCORBIC ACID 500 MG TABLET PO SCH (09:15)
[2021-06-18] MEDS: CYANOCOBALAMIN 1,000 MCG TABLET PO SCH (09:16)
[2021-06-18] MEDS: ENOXAPARIN SODIUM 60 MG/0.6 ML DISP.SYRIN SQ SCH ×2 (09:16→20:38)
[2021-06-18] MEDS: ATENOLOL 25 MG TABLET PO SCH (09:17)
[2021-06-18] MEDS: ZINC SULFATE 220 MG CAPSULE PO SCH (09:17)
[2021-06-18] MEDS: CHOLECALCIFEROL 1,000 UNIT TABLET PO SCH (09:17)
[2021-06-18] MEDS: PANTOPRAZOLE SODIUM 40 MG TABLET.DR PO SCH (09:17)
[2021-06-18] MEDS: [UNRECOGNIZED DRUG - OTHER] PO SCH (09:18)
[2021-06-18] MEDS: GLUCERNA SHAKE 237 ML CAN PO SCH ×2 (09:18→17:17)
[2021-06-18] MEDS: JARDIANCE 10 MG PO SCH (09:18)
[2021-06-18] MEDS: JENTADUETO PO SCH ×2 (09:18→20:34)
--- NOTE | 2021-06-18 10:01 | NUR ---
Upon initial assessment patient on NR 100%. with saturation 80%, pt. slightly scyanotic, tachypneic with breathing in the upper 20's patient slightly confused, refusing to take her medications pt. educated and persuaded to take her medications and finally agreed.
[2021-06-18 10:26] LABS: ABG BASE EXCESS 1.2 mmol/L; ABG HCO3 23.7 mmol/L; ABG PCO2 31.9 mmHg (35.0-45.0); ABG PH 7.488 (7.350-7.450); ABG PO2 68.3 mmHg (75.0-100.0); ABG SITE LEFT RADIAL; MetHb 0.4 % (0.0-1.5)
--- NOTE | 2021-06-18 10:30 | NUR ---
A call from pt's daughter Ms. Fong at this time she was updated on her mother's condition she was informed that and ABG has been orders and if needed will give her a call, otherwise will continue with care plan. Addendum: 06/18/21 at 1230 by DORYS DORSEY RN Ms. Fong requested to be call by attending with an update.
--- NOTE | 2021-06-18 11:30 | NUR ---
Attending Andrea GROSSMAN in the unit to follow up on pt. and He was informed of pt's daughter request to give her a call with an update.
[2021-06-18 12:00] VITALS: BP 95/50
[2021-06-18] MEDS: INSULIN REGULAR, HUMAN 300 UNIT/3 ML VIAL SQ PRN ×3 (12:02→20:36)
--- NOTE | 2021-06-18 13:05 | NUR ---
RT PER MD ORDER PT WAS PLACE ON VAPOTHERM NC AT THIS TIME. PT WAS PLACE ON 27LPM FIO2 100% TEMP @34. PT AT THIS TIME TOLERATING VAPOTHERM WELL NO DISTRESS NOTED AT THIS TIME CONT PULSE OX AT BED SIDE. SPO2 95% HR 51. WILL CONTINUE TO MONITOR PT. SPO2 TITRATION ORDER TO KEEP SPO2 >90%
[2021-06-18 16:13] VITALS: BP 104/59
--- NOTE | 2021-06-18 18:35 | NUR ---
Left patient on high flow 27L 100% with saturation within desired limits and as verbalized by her feeling comfortable. AAOX4. vitals stable no c/of pain. Tolerating diet well with no n/v/d. Hemodynamically stable, sbp within normal. Iv line patent. Sacral redness uncomplicated. Will endorse to incoming shift for continuity of care.
--- NOTE | 2021-06-18 19:30 | NUR ---
Received patient lying in bed. AAO4. In no acute distress. On high flow 100% O2 at 27L. O2 sat at 95% at this time. Denies any pain or SOB. Midline on right upper arm intact and patent. NSR on tele with HR of 72/min. COVID precaution observed. Safety measure initiated and call tillman within reached.
[2021-06-18 20:30] VITALS: BP 92/57
[2021-06-18] MEDS: MIRTAZAPINE 15 MG TABLET PO SCH (20:33)
[2021-06-18] MEDS: LAMOTRIGINE 100 MG TABLET PO SCH (20:33)
[2021-06-18] MEDS: TRAZODONE 100 MG TABLET PO SCH (20:34)
[2021-06-18] MEDS: INSULIN GLARGINE,HUM 300 UNITS/3 ML CARTRIDGE SQ SCH (20:37)
[2021-06-19 00:22] VITALS: BP 97/59
[2021-06-19 04:55] VITALS: BP 101/56
[2021-06-19] MEDS: ACIDOPHILUS/BULGARICUS CHEW TAB PO SCH ×3 (05:03→21:06)
--- NOTE | 2021-06-19 06:18 | NUR ---
AAO4. In no apparent distress. On high flow 100% FIO2 with O2 at 27L/min via NC. Denies any pain or SOB. Midline on right upper arm intact and patent. SR on tele with PAC's with HR of 62/min. Needs attended to and met. COVID precaution maintained. Safety measure maintained and call tillman within reached.
[2021-06-19] MEDS: BLOOD SUGAR DIAGNOSTIC 1 EACH STRIP VI SCH ×4 (06:35→20:39)
[2021-06-19 07:01] LABS: MEAN CORPUSCULAR HEMOGLOBIN 29.4 uug (24.7-32.8); MEAN CORPUSCULAR VOLUME 88.5 fL (75.5-95.3); PLATELET COUNT (AUTO) 231 K/uL (179-408)
[2021-06-19 07:06] LABS: HEPATITIS B SURFACE AG Negative (Negative)
[2021-06-19 07:35] LABS: BILIRUBIN,TOTAL 0.9 mg/dL (0.2-1.0); CREATININE 0.6 mg/dL (0.6-1.3); MAGNESIUM 2.4 mg/dL (1.8-2.4); PHOSPHOROUS 3.5 mg/dL (2.5-4.9); POTASSIUM 4.4 mmol/L (3.5-5.1); TOTAL PROTEIN, SERUM 5.3 g/dL (6.4-8.2)
[2021-06-19] MEDS: ATENOLOL 25 MG TABLET PO SCH (09:00)
[2021-06-19] MEDS: LOSARTAN POTASSIUM 50 MG TABLET PO SCH (09:00)
[2021-06-19] MEDS: CYANOCOBALAMIN 1,000 MCG TABLET PO SCH (09:04)
[2021-06-19] MEDS: NYSTATIN SUSPENSION 5 ML LIQUID UDC PO SCH ×2 (09:04→17:42)
[2021-06-19] MEDS: DEXAMETHASONE SOD PHOSPHATE 4 MG INJ IV SCH ×2 (09:04→20:34)
[2021-06-19] MEDS: ASCORBIC ACID 500 MG TABLET PO SCH (09:05)
[2021-06-19] MEDS: ASPIRIN 81 MG TAB.CHEW PO SCH (09:05)
[2021-06-19] MEDS: PANTOPRAZOLE SODIUM 40 MG TABLET.DR PO SCH (09:05)
[2021-06-19] MEDS: ZINC SULFATE 220 MG CAPSULE PO SCH (09:05)
[2021-06-19] MEDS: CHOLECALCIFEROL 1,000 UNIT TABLET PO SCH (09:05)
[2021-06-19] MEDS: buPROPion XL 150 MG TAB.SR.24H PO SCH (09:05)
[2021-06-19] MEDS: GLUCERNA SHAKE 237 ML CAN PO SCH ×2 (09:06→17:42)
[2021-06-19] MEDS: [UNRECOGNIZED DRUG - OTHER] PO SCH (09:09)
[2021-06-19] MEDS: JENTADUETO PO SCH ×2 (09:09→20:34)
[2021-06-19] MEDS: JARDIANCE 10 MG PO SCH (09:09)
[2021-06-19] MEDS: ALENDRONATE SODIUM 70 MG TABLET PO SCH (09:09)
[2021-06-19] MEDS: ENOXAPARIN SODIUM 60 MG/0.6 ML DISP.SYRIN SQ SCH ×2 (09:57→20:33)
[2021-06-19] MEDS: INSULIN REGULAR, HUMAN 300 UNIT/3 ML VIAL SQ PRN ×2 (11:53→17:16)
[2021-06-19 13:46] VITALS: BP 103/73
[2021-06-19 16:29] VITALS: BP 107/59
[2021-06-19 18:06] LABS: COCCIDIOIDES CF SERUM Negative (Neg:<1:2)
--- NOTE | 2021-06-19 18:52 | NUR ---
Patient resting in bed. AOx4. On High flow 27L/min, 100% FIO2, saturating 95-97%. Denies pain and discomfort at this time. Compliant with medications and care. NSR on consultant teacher. Kept clean and comfortable. Needs anticipated and met. Bed alarm on. Call light within reach. Will endorse to incoming shift for continuity of care.
--- NOTE | 2021-06-19 20:00 | NUR ---
Received patient sitting upright in bed. AAOx4. In no acute distress. On high flow 100% FiO2 at 27L via NC. O2 sat at 95% at this time. Denies any pain or SOB. Midline on right upper arm intact and patent. NSR on tele with HR of 80/min. Needs assessed and attended to. COVID precaution observed. Safety measure initiated and call tillman within reached.
[2021-06-19] MEDS: MIRTAZAPINE 15 MG TABLET PO SCH (20:33)
[2021-06-19] MEDS: LAMOTRIGINE 100 MG TABLET PO SCH (20:34)
[2021-06-19] MEDS: TRAZODONE 100 MG TABLET PO SCH (20:34)
[2021-06-19] MEDS: INSULIN GLARGINE,HUM 300 UNITS/3 ML CARTRIDGE SQ SCH (20:47)
[2021-06-19 20:48] VITALS: BP 117/76
[2021-06-20 00:32] VITALS: BP 110/58
--- NOTE | 2021-06-20 02:25 | NUR ---
PATIENT ON HIGH FLOW CONT.,PT AWAKE AT TIMES, CHANGE H20 FOR HIGH FLOW ,FIO2 @ 100% , 27LM . D GEOFFREY CHARGING BOARD OPERATOR Addendum: 06/20/21 at 0227 by STEPHENIE HALE RT Amended: Links added.
[2021-06-20 04:38] VITALS: BP 102/67
[2021-06-20] MEDS: ACIDOPHILUS/BULGARICUS CHEW TAB PO SCH ×3 (06:06→21:53)
--- NOTE | 2021-06-20 06:27 | NUR ---
In no apparent distress. Remains on high flow 100% FiO2 with O2 at 27L/min via NC. Denies any pain or SOB. SR on tele with PAC's with HR of 78/min. Needs attended to and met. COVID precaution maintained. Safety measure maintained and call tillman within reached.
[2021-06-20 06:47] LABS: HEMATOCRIT 49.1 % (31.2-41.9); MEAN CORPUSCULAR HEMOGLOBIN 29.3 uug (24.7-32.8); MEAN CORPUSCULAR VOLUME 88.3 fL (75.5-95.3); PLATELET COUNT (AUTO) 272 K/uL (179-408)
[2021-06-20] MEDS: BLOOD SUGAR DIAGNOSTIC 1 EACH STRIP VI SCH ×4 (07:14→21:52)
[2021-06-20 07:17] LABS: CREATININE 0.6 mg/dL (0.6-1.3); MAGNESIUM 2.3 mg/dL (1.8-2.4); PHOSPHOROUS 3.3 mg/dL (2.5-4.9); POTASSIUM 4.4 mmol/L (3.5-5.1)
[2021-06-20 08:10] LABS: THYROID STIMULATING HORMONE 3.272 mIU/mL (0.358-3.740)
[2021-06-20] MEDS: LOSARTAN POTASSIUM 50 MG TABLET PO SCH (09:00)
[2021-06-20] MEDS: ATENOLOL 25 MG TABLET PO SCH (09:00)
[2021-06-20] MEDS: DEXAMETHASONE SOD PHOSPHATE 4 MG INJ IV SCH ×3 (09:20→21:50)
[2021-06-20] MEDS: ASPIRIN 81 MG TAB.CHEW PO SCH (09:21)
[2021-06-20] MEDS: [UNRECOGNIZED DRUG - OTHER] PO SCH (09:23)
[2021-06-20] MEDS: JARDIANCE 10 MG PO SCH (09:23)
[2021-06-20] MEDS: JENTADUETO PO SCH ×2 (09:23→21:50)
[2021-06-20] MEDS: CYANOCOBALAMIN 1,000 MCG TABLET PO SCH (09:24)
[2021-06-20] MEDS: ZINC SULFATE 220 MG CAPSULE PO SCH (09:24)
[2021-06-20] MEDS: NYSTATIN SUSPENSION 5 ML LIQUID UDC PO SCH ×2 (09:24→17:30)
[2021-06-20] MEDS: CHOLECALCIFEROL 1,000 UNIT TABLET PO SCH (09:25)
[2021-06-20] MEDS: ASCORBIC ACID 500 MG TABLET PO SCH (09:25)
[2021-06-20] MEDS: PANTOPRAZOLE SODIUM 40 MG TABLET.DR PO SCH (09:25)
[2021-06-20] MEDS: buPROPion XL 150 MG TAB.SR.24H PO SCH (09:25)
[2021-06-20] MEDS: ENOXAPARIN SODIUM 60 MG/0.6 ML DISP.SYRIN SQ SCH ×2 (09:28→21:51)
[2021-06-20] MEDS: GLUCERNA SHAKE 237 ML CAN PO SCH ×2 (09:29→17:31)
[2021-06-20 11:56] VITALS: BP 149/80
[2021-06-20 16:00] VITALS: BP 131/62
[2021-06-20 20:00] VITALS: BP 108/64
[2021-06-20] MEDS: MIRTAZAPINE 15 MG TABLET PO SCH (21:50)
[2021-06-20] MEDS: LAMOTRIGINE 100 MG TABLET PO SCH (21:50)
[2021-06-20] MEDS: TRAZODONE 100 MG TABLET PO SCH (21:50)
[2021-06-20] MEDS: INSULIN GLARGINE,HUM 300 UNITS/3 ML CARTRIDGE SQ SCH (21:51)
[2021-06-20] MEDS: INSULIN REGULAR, HUMAN 300 UNIT/3 ML VIAL SQ PRN (21:52)
[2021-06-21] VITALS: BP 104/56
[2021-06-21 04:00] VITALS: BP 96/56
[2021-06-21] MEDS: ACIDOPHILUS/BULGARICUS CHEW TAB PO SCH ×3 (05:25→21:46)
[2021-06-21] MEDS: ACETAMINOPHEN 325 MG TABLET PO PRN (05:25)
[2021-06-21] MEDS: BLOOD SUGAR DIAGNOSTIC 1 EACH STRIP VI SCH ×4 (06:33→22:07)
[2021-06-21 06:37] LABS: HEMATOCRIT 46.7 % (31.2-41.9); MEAN CORPUSCULAR VOLUME 88.4 fL (75.5-95.3); PLATELET COUNT (AUTO) 223 K/uL (179-408)
--- NOTE | 2021-06-21 06:50 | NUR ---
PT STABLE THROUGHOUT THE SHIFT. DENIES ANY ACUTE DISTRESS OR PAIN AT THIS TIME. PT KEPT ON HIGH FLOW 27L, FIO2 OF 100% TOLERATING WELL. CONT PULSE OX AT BS. BLOOD SUGAR MONITORED CLOSELY, SLIDING SCALE PROTOCOL IMPLEMENTED. NSR ON TELE MONITOR. COMFORT CARE AND NEEDS ATTENDED. SAFETY MEASURES IN PLACE. FALL AND ISOLATION PRECAUTION MAINTAINED. WILL ENDORSE TO ONCOMING NURSE.
[2021-06-21 07:11] LABS: CREATININE 0.7 mg/dL (0.6-1.3); MAGNESIUM 2.3 mg/dL (1.8-2.4); PHOSPHOROUS 3.6 mg/dL (2.5-4.9); POTASSIUM 4.4 mmol/L (3.5-5.1)
--- NOTE | 2021-06-21 08:30 | NUR ---
Received phone call from Dr Potts from [facility] stating that patient and family called and complained about service. Patient was yelling at CYBER FORENSICS ANALYST when nurse entered for report,. Also received multiple calls from daughter while nurse were still giving report on patients. Her request were addressed but patient insist that all the things done were not carried out.
[2021-06-21] MEDS ORDERED: DEXAMETHASONE SOD PHOSPHATE 4 MG INJ IV SCH (09:00)
[2021-06-21] MEDS: DEXAMETHASONE SOD PHOSPHATE 4 MG INJ IV SCH ×2 (09:09→21:45)
[2021-06-21] MEDS: ASPIRIN 81 MG TAB.CHEW PO SCH (09:10)
[2021-06-21] MEDS: CHOLECALCIFEROL 1,000 UNIT TABLET PO SCH (09:10)
[2021-06-21] MEDS: ZINC SULFATE 220 MG CAPSULE PO SCH (09:23)
[2021-06-21] MEDS: ASCORBIC ACID 500 MG TABLET PO SCH (09:23)
[2021-06-21] MEDS: JENTADUETO PO SCH ×2 (09:25→22:08)
[2021-06-21] MEDS: [UNRECOGNIZED DRUG - OTHER] PO SCH (09:25)
[2021-06-21] MEDS: PANTOPRAZOLE SODIUM 40 MG TABLET.DR PO SCH (09:25)
[2021-06-21] MEDS: CYANOCOBALAMIN 1,000 MCG TABLET PO SCH (09:25)
[2021-06-21] MEDS: buPROPion XL 150 MG TAB.SR.24H PO SCH (09:25)
[2021-06-21] MEDS: JARDIANCE 10 MG PO SCH (09:25)
[2021-06-21] MEDS: GLUCERNA SHAKE 237 ML CAN PO SCH ×2 (09:26→16:43)
[2021-06-21] MEDS: NYSTATIN SUSPENSION 5 ML LIQUID UDC PO SCH ×2 (09:26→16:43)
--- NOTE | 2021-06-21 09:30 | NUR ---
Patient refusing to take all oral medications.
[2021-06-21] MEDS: LOSARTAN POTASSIUM 50 MG TABLET PO SCH (09:35)
[2021-06-21] MEDS: ATENOLOL 25 MG TABLET PO SCH (09:35)
[2021-06-21] MEDS: ENOXAPARIN SODIUM 60 MG/0.6 ML DISP.SYRIN SQ SCH ×2 (09:36→21:47)
[2021-06-21] MEDS: INSULIN REGULAR, HUMAN 300 UNIT/3 ML VIAL SQ PRN ×3 (09:37→17:18)
[2021-06-21 12:11] VITALS: BP 112/66
--- NOTE | 2021-06-21 13:19 | NUR ---
Patient is non compliant and yelling to her family members on the phone that she wants to . Patient refused all medications after multiple attempts. Medications were crushed and placed in juice according to patient's request. Md notified of patients non compliance with her care. Will continue to monitor.
[2021-06-21 16:36] VITALS: BP 131/56
--- NOTE | 2021-06-21 17:40 | NUR ---
PT IS STABLE ON HFNC 40LPM, 100% FIO2. PT HAS EPISODES OF DESATURATION WITH ANXIETY AND EXERTION. SPO2 WNL THROUGHOUT SHIFT. CONT. POX AT BEDSIDE. WILL CONTINUE TO MONITOR.
--- NOTE | 2021-06-21 18:50 | NUR ---
Patient has calmed down and is resting in bed speaking on the phone with family. No sign of distress noted at this time. Safety measures are in place. Will endorse to oncoming nurse.
--- NOTE | 2021-06-21 19:50 | NUR ---
Pt very anxious at the moment. Pt needs to be reoriented. On Hi Delvin 40L, F102 100% saturating at 95%. On monitor technician with NS rhythm, HR at 60 bpm. Droplet precautions. Call lights within reach. Safety measures initiated.
[2021-06-21 20:00] VITALS: BP 101/56
--- NOTE | 2021-06-21 21:30 | NUR ---
Crushed medications. Pt not able to swallow medications. Spits medication and water mixed back out. Non-compliant with PO medication. Remains forgetful and needs to be reoriented. Wasted Mirtazapine 22.5 mg tablet and Trazodone 100 mg tablet. No signs of acute distress.
[2021-06-21] MEDS: MIRTAZAPINE 15 MG TABLET PO SCH ×2 (21:45→23:08)
[2021-06-21] MEDS: LAMOTRIGINE 100 MG TABLET PO SCH ×2 (21:46→23:07)
[2021-06-21] MEDS: INSULIN GLARGINE,HUM 300 UNITS/3 ML CARTRIDGE SQ SCH (21:49)
[2021-06-21] MEDS: TRAZODONE 100 MG TABLET PO SCH (21:49)
[2021-06-22] VITALS: BP 112/59
[2021-06-22] MEDS ORDERED: LORAZEPAM 2 MG/1 ML VIAL IV ONE (00:30)
--- NOTE | 2021-06-22 01:15 | NUR ---
O.5 mg Ativan IV given for anxiety. No signs of acute distress noted. Pt resting in bed, easily arousable to name and touch.
[2021-06-22 04:00] VITALS: BP 112/60
--- NOTE | 2021-06-22 05:09 | NUR ---
Slept through the night. Alert and oriented to name and place. On Hi Delvin NC 40L, Fio2 at 100% saturating at 95%. No signs of acute distress. On monitoring and evaluation advisor with normal sinus rhythm. PHYLLIS midline intact, saline flushed and heplock. Non compliant with medication and care. Call lights within reach. Safety measures maintained. Droplet precautions. Will endorse to am shift.
[2021-06-22] MEDS: BLOOD SUGAR DIAGNOSTIC 1 EACH STRIP VI SCH ×4 (06:47→22:14)
[2021-06-22] MEDS: ACIDOPHILUS/BULGARICUS CHEW TAB PO SCH ×3 (06:52→22:14)
[2021-06-22] MEDS: MIRTAZAPINE 15 MG TABLET PO SCH (06:53)
[2021-06-22 07:41] LABS: HEMATOCRIT 44.8 % (31.2-41.9); PLATELET COUNT (AUTO) 216 K/uL (179-408)
[2021-06-22 07:57] LABS: CREATININE 0.8 mg/dL (0.6-1.3); POTASSIUM 4.1 mmol/L (3.5-5.1)
[2021-06-22] MEDS: ASPIRIN 81 MG TAB.CHEW PO SCH (08:19)
[2021-06-22] MEDS: CHOLECALCIFEROL 1,000 UNIT TABLET PO SCH (08:19)
[2021-06-22] MEDS: ASCORBIC ACID 500 MG TABLET PO SCH (08:19)
[2021-06-22] MEDS: ZINC SULFATE 220 MG CAPSULE PO SCH (08:19)
[2021-06-22] MEDS: CYANOCOBALAMIN 1,000 MCG TABLET PO SCH (08:20)
[2021-06-22] MEDS: JENTADUETO PO SCH ×2 (08:20→22:19)
[2021-06-22] MEDS: buPROPion XL 150 MG TAB.SR.24H PO SCH (08:20)
[2021-06-22] MEDS: JARDIANCE 10 MG PO SCH (08:21)
[2021-06-22] MEDS: [UNRECOGNIZED DRUG - OTHER] PO SCH (08:21)
[2021-06-22] MEDS: LOSARTAN POTASSIUM 50 MG TABLET PO SCH (08:29)
[2021-06-22] MEDS: ATENOLOL 25 MG TABLET PO SCH (08:30)
[2021-06-22] MEDS: PANTOPRAZOLE SODIUM 40 MG TABLET.DR PO SCH (08:39)
[2021-06-22] MEDS: ENOXAPARIN SODIUM 60 MG/0.6 ML DISP.SYRIN SQ SCH ×3 (08:42→22:10)
[2021-06-22] MEDS: DEXAMETHASONE SOD PHOSPHATE 4 MG INJ IV SCH (08:45)
[2021-06-22] MEDS: GLUCERNA SHAKE 237 ML CAN PO SCH ×2 (09:00→17:00)
[2021-06-22 11:32] VITALS: BP 111/62
[2021-06-22] MEDS: INSULIN REGULAR, HUMAN 300 UNIT/3 ML VIAL SQ PRN ×3 (11:52→22:12)
[2021-06-22 15:13] VITALS: BP 101/61
--- NOTE | 2021-06-22 18:44 | NUR ---
Received patient in covid unit. contact isolation rendered. Patient in hi-flow of 15L with Fio2 of 40% saturating at 95%, denies of any pain. Per patient , wants her medication to be crashed. Medication was crashed and gave to patient with yogurt. Patient only consumed half of her medication and spit the other half and stated "I DON'T WANT IT" when asked patient stated " I dont' need it" Explain the risk and benefits of the medication but patient refused. All needs met promptly. Placed call light within reach.
[2021-06-22 20:21] VITALS: BP 99/57
[2021-06-22] MEDS: TRAZODONE 100 MG TABLET PO SCH (21:57)
[2021-06-22] MEDS: INSULIN GLARGINE,HUM 300 UNITS/3 ML CARTRIDGE SQ SCH (22:11)
[2021-06-23 00:09] VITALS: BP 111/59
[2021-06-23 04:21] VITALS: BP 120/47
[2021-06-23] MEDS: ACIDOPHILUS/BULGARICUS CHEW TAB PO SCH ×3 (06:11→21:10)
[2021-06-23 06:44] LABS: HEMATOCRIT 45.2 % (31.2-41.9); MEAN CORPUSCULAR HEMOGLOBIN 29.5 uug (24.7-32.8); MEAN CORPUSCULAR VOLUME 87.6 fL (75.5-95.3); PLATELET COUNT (AUTO) 218 K/uL (179-408)
--- NOTE | 2021-06-23 06:47 | NUR ---
Pt slept throughout the night. More alert than previous night. AO x 4. On Hi Delvin, 15L with Fio2 at 40%, saturating at 94-95%. Crushed medications, tolerated. PHYLLIS midline intact, flushed and patent. No signs of acute distress. Denies any chest pain or discomfort. Droplet precautions. Call lights within reach. Safety measures maintained.
[2021-06-23] MEDS: BLOOD SUGAR DIAGNOSTIC 1 EACH STRIP VI SCH ×4 (07:05→21:31)
[2021-06-23 07:32] LABS: CARBON DIOXIDE 27 mmol/L (21-32); CHLORIDE 99 mmol/L (98-107); CREATININE 0.7 mg/dL (0.6-1.3); FERRITIN 802 ng/mL (8-252); GLUCOSE 59 mg/dL (74-106); LACTATE DEHYDROGENASE 309 U/L (81-234); MAGNESIUM 2.4 mg/dL (1.8-2.4); POTASSIUM 3.7 mmol/L (3.5-5.1); UREA NITROGEN, BLOOD 30 mg/dL (7-18)
--- NOTE | 2021-06-23 07:59 | NUR ---
Received resting in bed. No sob noted. On hi flow nasal cannula 15 lpm fio2 40%. O2 sat 94%. SR on telemonitor hr 70s. No facial grimacing noted. Iv is intact. Appears comfortable. Call light and personal belongings in reach.
[2021-06-23 08:45] VITALS: BP 90/36
[2021-06-23] MEDS: LOSARTAN POTASSIUM 50 MG TABLET PO SCH (09:00)
[2021-06-23] MEDS: ATENOLOL 25 MG TABLET PO SCH (09:00)
[2021-06-23] MEDS ORDERED: NEUTRA PHOS PACKET PO ONE (09:00)
[2021-06-23] MEDS: PANTOPRAZOLE SODIUM 40 MG TABLET.DR PO SCH (09:16)
[2021-06-23] MEDS: buPROPion XL 150 MG TAB.SR.24H PO SCH (09:16)
[2021-06-23] MEDS: CYANOCOBALAMIN 1,000 MCG TABLET PO SCH (09:16)
[2021-06-23] MEDS: ASCORBIC ACID 500 MG TABLET PO SCH (09:16)
[2021-06-23] MEDS: ASPIRIN 81 MG TAB.CHEW PO SCH (09:16)
[2021-06-23] MEDS: CHOLECALCIFEROL 1,000 UNIT TABLET PO SCH (09:16)
[2021-06-23] MEDS: DEXAMETHASONE SOD PHOSPHATE 4 MG INJ IV SCH (09:16)
[2021-06-23] MEDS: ZINC SULFATE 220 MG CAPSULE PO SCH (09:17)
[2021-06-23] MEDS: JENTADUETO PO SCH ×2 (09:17→21:11)
[2021-06-23] MEDS: JARDIANCE 10 MG PO SCH (09:17)
[2021-06-23] MEDS: GLUCERNA SHAKE 237 ML CAN PO SCH ×2 (09:17→17:20)
[2021-06-23] MEDS: [UNRECOGNIZED DRUG - OTHER] PO SCH (09:17)
[2021-06-23] MEDS: ENOXAPARIN SODIUM 60 MG/0.6 ML DISP.SYRIN SQ SCH (09:19)
--- NOTE | 2021-06-23 10:09 | NUR ---
Put on hi flow nasal cannula 10 lpm fio2 36% by RT. No sob noted. O2 sat 91-92% at rest. Cont to monitor.
--- NOTE | 2021-06-23 11:10 | NUR ---
RT put patient on 5 Lpm nasal cannula O2 sat 96%. No sob noted. Spoke to dtr Loly Rivera and updated on condition.
--- NOTE | 2021-06-23 11:26 | NUR ---
Dr. Wellington made aware of bp readings this morning and per daughter's request to discontinue xanax bec it makes her mother manic. No new orders received at this time.
[2021-06-23] MEDS: INSULIN REGULAR, HUMAN 300 UNIT/3 ML VIAL SQ PRN ×3 (12:01→21:37)
[2021-06-23 12:19] VITALS: BP 91/56
[2021-06-23 16:08] VITALS: BP 98/54
--- NOTE | 2021-06-23 18:20 | NUR ---
Comfortable in bed watching tv. On 4 Lpm nasal cannula O2 sat 95%. No sob. Denies pain. Needs attended. Cont to monitor.
--- NOTE | 2021-06-23 18:39 | NUR ---
Dtr requested to recheck covid test. Asked Tolu LUIS if ok to recheck and he stated yes. Informed Dr. Wellington with order.
--- NOTE | 2021-06-23 19:35 | NUR ---
PATIENT ALERT ORIENTED, NO SOB NO CHEST PAIN, TELE MONITOR SINUS RHYTHM, ON 4LITERS NC, SAT WNL, AFEBRILE REMAINS ON DROPLET PRECAUTIONS, PATIENT REMAINS CALM, AT THIS TIME, CONT TO MONITOR.
[2021-06-23 20:40] VITALS: BP 100/58
[2021-06-23] MEDS: LAMOTRIGINE 100 MG TABLET PO SCH (21:11)
[2021-06-23] MEDS: TRAZODONE 100 MG TABLET PO SCH (21:11)
[2021-06-23] MEDS: MIRTAZAPINE 15 MG TABLET PO SCH (21:12)
[2021-06-23] MEDS: INSULIN GLARGINE,HUM 300 UNITS/3 ML CARTRIDGE SQ SCH (21:36)
[2021-06-24 00:46] VITALS: BP 98/49
[2021-06-24 04:49] VITALS: BP 98/48
[2021-06-24] MEDS: ACIDOPHILUS/BULGARICUS CHEW TAB PO SCH ×3 (06:08→21:58)
[2021-06-24] MEDS: BLOOD SUGAR DIAGNOSTIC 1 EACH STRIP VI SCH ×4 (06:09→21:52)
--- NOTE | 2021-06-24 06:36 | NUR ---
PATIENT AWAKE ALERT NO SOB NO CHEST PAIN NO COMPLAIN OF PAIN, TELE MONITOR SINUS RYTHM. PATIENT CONT ON DROPLET PRECAUTION, NO COUGHING, NO FEVER, ON 5 LITERS NC, SAT WNL CONT TO MONITOR.
[2021-06-24 07:37] VITALS: BP 98/54
--- NOTE | 2021-06-24 08:00 | NUR ---
Awake, alert, oriented x 4, on moderate high back rest. O2 at 4L/NC with O2 sat of 94-95%. Medications crushed given with apple sauce, noted difficulty swallowing.
[2021-06-24 08:49] LABS: HEMATOCRIT 43.4 % (31.2-41.9); MEAN CORPUSCULAR HEMOGLOBIN 29.4 uug (24.7-32.8); PLATELET COUNT (AUTO) 171 K/uL (179-408)
[2021-06-24] MEDS: DEXAMETHASONE SOD PHOSPHATE 4 MG INJ IV SCH (08:50)
[2021-06-24] MEDS: ASPIRIN 81 MG TAB.CHEW PO SCH (08:50)
[2021-06-24] MEDS: [UNRECOGNIZED DRUG - OTHER] PO SCH (08:51)
[2021-06-24] MEDS: JENTADUETO PO SCH ×2 (08:51→21:58)
[2021-06-24] MEDS: JARDIANCE 10 MG PO SCH (08:51)
[2021-06-24] MEDS: LOSARTAN POTASSIUM 50 MG TABLET PO SCH (08:51)
[2021-06-24] MEDS: ATENOLOL 25 MG TABLET PO SCH (08:52)
[2021-06-24] MEDS: PANTOPRAZOLE SODIUM 40 MG TABLET.DR PO SCH (08:52)
[2021-06-24] MEDS: CYANOCOBALAMIN 1,000 MCG TABLET PO SCH (08:53)
[2021-06-24] MEDS: ZINC SULFATE 220 MG CAPSULE PO SCH (08:58)
[2021-06-24] MEDS: ASCORBIC ACID 500 MG TABLET PO SCH (08:58)
[2021-06-24] MEDS: buPROPion XL 150 MG TAB.SR.24H PO SCH (08:58)
[2021-06-24] MEDS: CHOLECALCIFEROL 1,000 UNIT TABLET PO SCH (08:58)
[2021-06-24] MEDS: ENOXAPARIN SODIUM 40 MG/0.4 ML DISP.SYRIN SQ SCH (08:59)
[2021-06-24] MEDS: GLUCERNA SHAKE 237 ML CAN PO SCH ×2 (09:00→17:00)
[2021-06-24 09:01] LABS: CREATININE 0.6 mg/dL (0.6-1.3); MAGNESIUM 2.4 mg/dL (1.8-2.4); POTASSIUM 4.2 mmol/L (3.5-5.1)
--- NOTE | 2021-06-24 11:00 | NUR ---
ST at bedside. swallow eval done.
[2021-06-24 11:52] VITALS: BP 116/61
--- NOTE | 2021-06-24 13:00 | NUR ---
Refused to eat lunch. Patient focused on the cellphone, unable to redirect.
[2021-06-24] MEDS ORDERED: NEUTRA PHOS PACKET PO ONE (15:45)
[2021-06-24 16:03] VITALS: BP 113/61
[2021-06-24] MEDS: INSULIN REGULAR, HUMAN 300 UNIT/3 ML VIAL SQ PRN (18:24)
--- NOTE | 2021-06-24 18:25 | NUR ---
Patient focused on her cellphone, not eating meal even when assisted. waiting for Scott YING for order
--- NOTE | 2021-06-24 19:15 | NUR ---
Received pt sitting up with HOB elevated. Pt is anxious. Alert to name, continues to keep touching phone screen. On hi jenni NC at 5L and Fi02 at 21% saturating at 96%. No signs of acute distress. Call lights within reach. Droplet precautions. Bed alarm on, bed locked in lowest position.
[2021-06-24 20:00] VITALS: BP 109/55
[2021-06-24] MEDS ORDERED: LORAZEPAM 2 MG/1 ML VIAL IV ONE (20:00)
[2021-06-24] MEDS ORDERED: REMEDY ESSENTIAL ZINC PASTE 113 GM TOP PRN (20:00)
--- NOTE | 2021-06-24 21:30 | NUR ---
Ativan IV 1 mg / 0.5 ml given for anxiety at 2041. Medication effective. Pt resting, easily arousable to name and touch. O2 saturating at 95%.
[2021-06-24] MEDS: INSULIN GLARGINE,HUM 300 UNITS/3 ML CARTRIDGE SQ SCH (21:55)
[2021-06-24] MEDS: LAMOTRIGINE 100 MG TABLET PO SCH (21:58)
[2021-06-24] MEDS: MIRTAZAPINE 15 MG TABLET PO SCH (21:58)
[2021-06-24] MEDS: TRAZODONE 100 MG TABLET PO SCH (23:20)
[2021-06-25] VITALS: BP 91/51
[2021-06-25 04:00] VITALS: BP 100/58
[2021-06-25] MEDS: ACIDOPHILUS/BULGARICUS CHEW TAB PO SCH ×4 (06:09→21:40)
--- NOTE | 2021-06-25 06:38 | NUR ---
Slept throughout the night. Pt more alert and focused this morning. On hi jenni NC 5L with fi02 at 21% saturating at 94%. No signs of acute distress. Crushed medications and mixed with juice family brought. Compliant with am medication. PHYLLIS midline intact and patent, heplock. Needs have been met.
[2021-06-25 06:45] LABS: HEMATOCRIT 46.6 % (31.2-41.9); MEAN CORPUSCULAR HEMOGLOBIN 29.6 uug (24.7-32.8); MEAN CORPUSCULAR VOLUME 88.1 fL (75.5-95.3); PLATELET COUNT (AUTO) 185 K/uL (179-408)
[2021-06-25] MEDS: BLOOD SUGAR DIAGNOSTIC 1 EACH STRIP VI SCH ×4 (07:06→21:34)
[2021-06-25 07:14] LABS: CREATININE 0.7 mg/dL (0.6-1.3); MAGNESIUM 2.3 mg/dL (1.8-2.4); PHOSPHOROUS 1.8 mg/dL (2.5-4.9); POTASSIUM 3.9 mmol/L (3.5-5.1)
[2021-06-25] MEDS: ATENOLOL 25 MG TABLET PO SCH (09:00)
[2021-06-25] MEDS ORDERED: NEUTRA PHOS PACKET PO ONE (09:00)
[2021-06-25] MEDS: ASPIRIN 81 MG TAB.CHEW PO SCH (10:12)
[2021-06-25] MEDS: CHOLECALCIFEROL 1,000 UNIT TABLET PO SCH (10:12)
[2021-06-25] MEDS: ZINC SULFATE 220 MG CAPSULE PO SCH (10:13)
[2021-06-25] MEDS: ASCORBIC ACID 500 MG TABLET PO SCH (10:13)
[2021-06-25] MEDS: PANTOPRAZOLE SODIUM 40 MG TABLET.DR PO SCH (10:13)
[2021-06-25] MEDS: buPROPion XL 150 MG TAB.SR.24H PO SCH (10:13)
[2021-06-25] MEDS: CYANOCOBALAMIN 1,000 MCG TABLET PO SCH (10:14)
[2021-06-25] MEDS: ENOXAPARIN SODIUM 40 MG/0.4 ML DISP.SYRIN SQ SCH (10:16)
[2021-06-25] MEDS: GLUCERNA SHAKE 237 ML CAN PO SCH ×2 (10:17→18:00)
[2021-06-25] MEDS: JENTADUETO PO SCH ×2 (10:33→20:43)
[2021-06-25] MEDS: JARDIANCE 10 MG PO SCH (10:33)
[2021-06-25] MEDS: [UNRECOGNIZED DRUG - OTHER] PO SCH (10:33)
--- NOTE | 2021-06-25 11:13 | NUR ---
Received orders from Dr. Johnson to lower oxygen from 5 to 3 liters, will be monitored for oxygen level.
--- NOTE | 2021-06-25 11:15 | NUR ---
Received orders from Dr. Johnson to discontinue tele for this patient.
[2021-06-25] MEDS: INSULIN REGULAR, HUMAN 300 UNIT/3 ML VIAL SQ PRN (12:34)
--- NOTE | 2021-06-25 15:28 | NUR ---
Received patient awake in her room. A/O X 2 to person, place. Pt. is agitated at times, suspicious and selective with medications, demanding. Blood glucose is 188, 3 units given per sliding scale. Coozar was discontinued by the doctor. Pt. is positive for rapid and PCR Covid test. Pt. is on 3 liters of oxygen, 93% of saturation. Total care. Fall and safety precautions implemented.
--- NOTE | 2021-06-25 18:31 | NUR ---
Patient blood glucose is 85, no insulin needed per sliding scale.
--- NOTE | 2021-06-25 19:30 | NUR ---
Received pt awake, alert and orientedx3. Pt on 3l nasal cannula. IV intact. Pt in no acute distress. Safety and comfort provided. Will continue to monitor.
[2021-06-25] MEDS: MIRTAZAPINE 15 MG TABLET PO SCH (20:15)
[2021-06-25 20:42] VITALS: BP 93/51
[2021-06-25] MEDS: TRAZODONE 100 MG TABLET PO SCH (20:43)
[2021-06-25] MEDS: LAMOTRIGINE 100 MG TABLET PO SCH (20:43)
[2021-06-25] MEDS: INSULIN GLARGINE,HUM 300 UNITS/3 ML CARTRIDGE SQ SCH (21:00)
--- NOTE | 2021-06-25 21:34 | NUR ---
61blood sugar based on insulin sliding scale no insulin needed. Pt in no acute distress. Pt noted to be eating. Will continue to monitor.
--- NOTE | 2021-06-25 23:30 | NUR ---
Loly daughter called for an update regarding her mother. oLly wants to endorse to PT if they can have few sessions with her mother. Told daughter I will [facility].
[2021-06-26 04:35] VITALS: BP 107/53
[2021-06-26] MEDS: ACIDOPHILUS/BULGARICUS CHEW TAB PO SCH ×3 (06:15→21:07)
[2021-06-26 06:27] LABS: HEMATOCRIT 43.5 % (31.2-41.9); MEAN CORPUSCULAR VOLUME 87.7 fL (75.5-95.3); PLATELET COUNT (AUTO) 155 K/uL (179-408)
--- NOTE | 2021-06-26 06:27 | NUR ---
Pt slept intermittently. Pt in no acute distress. Pt refused to be photograph. Prescribed medication given and pt tolerated it well. Pt on sinus rhythm. Pt on 2l Nasal cannula. Oxygen saturation of 93%.Safety and comfort provided.All needs are met. Will endorse to incoming nurse for continuity of care.
[2021-06-26] MEDS: BLOOD SUGAR DIAGNOSTIC 1 EACH STRIP VI SCH ×4 (06:34→20:28)
[2021-06-26 06:44] LABS: BILIRUBIN,TOTAL 0.6 mg/dL (0.2-1.0); CREATININE 0.6 mg/dL (0.6-1.3); MAGNESIUM 2.2 mg/dL (1.8-2.4); PHOSPHOROUS 1.7 mg/dL (2.5-4.9); POTASSIUM 4.1 mmol/L (3.5-5.1); TOTAL PROTEIN, SERUM 4.8 g/dL (6.4-8.2)
[2021-06-26] MEDS: ATENOLOL 25 MG TABLET PO SCH (09:00)
[2021-06-26] MEDS: CHOLECALCIFEROL 1,000 UNIT TABLET PO SCH (09:11)
[2021-06-26] MEDS: PANTOPRAZOLE SODIUM 40 MG TABLET.DR PO SCH (09:12)
[2021-06-26] MEDS: DEXAMETHASONE SOD PHOSPHATE 4 MG INJ IV SCH (09:12)
[2021-06-26] MEDS: ASPIRIN 81 MG TAB.CHEW PO SCH (09:12)
[2021-06-26] MEDS: ASCORBIC ACID 500 MG TABLET PO SCH (09:12)
[2021-06-26] MEDS: ALENDRONATE SODIUM 70 MG TABLET PO SCH (09:12)
[2021-06-26] MEDS: buPROPion XL 150 MG TAB.SR.24H PO SCH (09:16)
[2021-06-26] MEDS: ZINC SULFATE 220 MG CAPSULE PO SCH (09:17)
[2021-06-26] MEDS: JARDIANCE 10 MG PO SCH (09:17)
[2021-06-26] MEDS: [UNRECOGNIZED DRUG - OTHER] PO SCH (09:17)
[2021-06-26] MEDS: JENTADUETO PO SCH ×2 (09:17→20:29)
[2021-06-26] MEDS: CYANOCOBALAMIN 1,000 MCG TABLET PO SCH (09:17)
[2021-06-26] MEDS: ENOXAPARIN SODIUM 40 MG/0.4 ML DISP.SYRIN SQ SCH (09:21)
[2021-06-26] MEDS: INSULIN REGULAR, HUMAN 300 UNIT/3 ML VIAL SQ PRN ×2 (09:21→12:00)
[2021-06-26] MEDS: GLUCERNA SHAKE 237 ML CAN PO SCH ×2 (09:22→17:12)
[2021-06-26] MEDS ORDERED: SODIUM PHOSPHATE MM 15 MMOL in IV NORMAL SALINE 250 ML IV ONE (09:30)
[2021-06-26 11:57] VITALS: BP 123/63
[2021-06-26 16:25] VITALS: BP 119/66
--- NOTE | 2021-06-26 17:00 | NUR ---
BS 70mg/dL. no distress identified. Denies discomfort. will continue to monitor.
--- NOTE | 2021-06-26 18:41 | NUR ---
The patient remained stable during the shift. no pain identified. titrated o2 at 1L from 2L via NC, saturating at 96%, patient requested to put 02 back to 2L, tolerating well, saturating at 96-98%. all needs attended, due meds given. kept call light within reach. will endorse to the next shift for continuity of care.
[2021-06-26 20:00] VITALS: BP 118/57
--- NOTE | 2021-06-26 20:00 | NUR ---
Received patient lying in bed. HOB elevated. On O2 at 2LPN via NC in place. Denies any pain or SOB. Midline on right upper arm intact and patent. COVID precaution observed. Needs assessed and attended to. Safety measure initiated and call light within reached.
[2021-06-26] MEDS: MIRTAZAPINE 15 MG TABLET PO SCH (20:29)
[2021-06-26] MEDS: LAMOTRIGINE 100 MG TABLET PO SCH (20:29)
[2021-06-26] MEDS: TRAZODONE 100 MG TABLET PO SCH (20:29)
[2021-06-26] MEDS: INSULIN GLARGINE,HUM 300 UNITS/3 ML CARTRIDGE SQ SCH (20:33)
[2021-06-27 04:00] VITALS: BP 103/57
[2021-06-27] MEDS: ACIDOPHILUS/BULGARICUS CHEW TAB PO SCH ×2 (06:22→13:03)
[2021-06-27] MEDS: BLOOD SUGAR DIAGNOSTIC 1 EACH STRIP VI SCH ×3 (06:33→16:35)
[2021-06-27 06:39] LABS: HEMATOCRIT 44.4 % (31.2-41.9); MEAN CORPUSCULAR VOLUME 88.4 fL (75.5-95.3); PLATELET COUNT (AUTO) 157 K/uL (179-408)
--- NOTE | 2021-06-27 06:46 | NUR ---
Remains on O2 at 2LPM via NC. On continuos pulse oximeter. O2 sat at 98%. Midline on right upper arm intact and patent. COVID precaution maintained. Needs attended to and met.
[2021-06-27 07:23] LABS: CREATININE 0.6 mg/dL (0.6-1.3); MAGNESIUM 2.3 mg/dL (1.8-2.4); POTASSIUM 3.4 mmol/L (3.5-5.1)
[2021-06-27] MEDS: GLUCERNA SHAKE 237 ML CAN PO SCH ×2 (08:20→17:00)
[2021-06-27] MEDS: JARDIANCE 10 MG PO SCH (08:20)
[2021-06-27] MEDS: JENTADUETO PO SCH (08:20)
[2021-06-27] MEDS: DEXAMETHASONE SOD PHOSPHATE 4 MG INJ IV SCH (08:20)
[2021-06-27] MEDS: ASPIRIN 81 MG TAB.CHEW PO SCH (08:20)
[2021-06-27] MEDS: [UNRECOGNIZED DRUG - OTHER] PO SCH (08:20)
[2021-06-27] MEDS: PANTOPRAZOLE SODIUM 40 MG TABLET.DR PO SCH (08:20)
[2021-06-27] MEDS: CHOLECALCIFEROL 1,000 UNIT TABLET PO SCH (08:21)
[2021-06-27] MEDS: CYANOCOBALAMIN 1,000 MCG TABLET PO SCH (08:21)
[2021-06-27] MEDS: ASCORBIC ACID 500 MG TABLET PO SCH (08:21)
[2021-06-27] MEDS: buPROPion XL 150 MG TAB.SR.24H PO SCH (08:22)
[2021-06-27] MEDS: ZINC SULFATE 220 MG CAPSULE PO SCH (08:22)
[2021-06-27] MEDS: ENOXAPARIN SODIUM 40 MG/0.4 ML DISP.SYRIN SQ SCH (08:23)
[2021-06-27] MEDS: ATENOLOL 25 MG TABLET PO SCH (08:28)
[2021-06-27] MEDS ORDERED: POTASSIUM CHLORIDE 20 MEQ TAB.PRT.SR PO ONE (09:45)
[2021-06-27] MEDS ORDERED: NEUTRA PHOS PACKET PO ONE (09:45)
[2021-06-27] MEDS ORDERED: POTASSIUM CHLORIDE 20 MEQ POWDER PACKET PO ONE (10:00)
[2021-06-27] MEDS ORDERED: POTASSIUM CHLORIDE 20 MEQ POWDER PACKET GT ONE (10:00)
[2021-06-27 11:09] VITALS: BP 105/61
[2021-06-27] MEDS: INSULIN REGULAR, HUMAN 300 UNIT/3 ML VIAL SQ PRN (11:26)
--- NOTE | 2021-06-27 13:27 | NUR ---
Called [facility] for patient report. Report given to CARL Esquivel.
--- NOTE | 2021-06-27 14:56 | NUR ---
[facility] be [facility] Johnson notified. Awaiting discharge order.
[2021-06-27 16:01] VITALS: BP 99/57
--- NOTE | 2021-06-27 17:27 | NUR ---
Patient discharged from unit at 1723. IV site removed and ID badge removed.
[2021-06-27] MEDS ORDERED: ACET325T53 PO (18:16)
[2021-06-27] MEDS ORDERED: ACID1TAB4 PO (18:16)
[2021-06-27] MEDS ORDERED: INSU100V28 SQ (18:16)
[2021-06-27] MEDS ORDERED: ALBU8HFA4 IH (18:16)
[2021-06-27] MEDS ORDERED: ZINC1CAP3 PO (18:16)
[2021-06-27] MEDS ORDERED: NUT.237L36 PO (18:16)
[2021-06-27] MEDS ORDERED: PANT40TA49 PO (18:16)
[2021-06-27] MEDS ORDERED: CHOL100062 PO (18:16)
[2021-06-27] MEDS ORDERED: Blood Sugar Diagnostic VI (18:16)
[2021-06-27] MEDS ORDERED: ASCO500T21 PO (18:16)
[2021-06-27] MEDS ORDERED: ASPI81TA31 PO (18:16)
== END 2021-06-27 17:25 | DRG 871 ==
LOC: ER 19:13 → TELE3 22:00 → MEDSURG3 06-25 11:13
PROVIDERS: ADMIT Internal Medicine; ATTEND Nurse Practitioner Acute Care
PROC: 05H633Z Insertion of Infusion Device into Left Subclavian Vein, Percutaneous Approach (ICD-10-PCS; 2021-06-12)
PROC: B547ZZA Ultrasonography of Left Subclavian Vein, Guidance (ICD-10-PCS; 2021-06-12)
PROC: XW033H5 Introduction of Tocilizumab into Peripheral Vein, Percutaneous Approach, New Technology Group 5 (ICD-10-PCS; principal; 2021-06-13)
PROC: 05H533Z Insertion of Infusion Device into Right Subclavian Vein, Percutaneous Approach (ICD-10-PCS; 2021-06-15)
PROC: B546ZZA Ultrasonography of Right Subclavian Vein, Guidance (ICD-10-PCS; 2021-06-15)
DX: A41.89 Other specified sepsis (principal); U07.1 COVID-19; J96.01 Acute respiratory failure with hypoxia; J12.82 Pneumonia due to coronavirus disease 2019; E43 Unspecified severe protein-calorie malnutrition; J15.9 Unspecified bacterial pneumonia; E03.9 Hypothyroidism, unspecified; E78.5 Hyperlipidemia, unspecified; E83.39 Other disorders of phosphorus metabolism; E87.6 Hypokalemia; E88.09 Other disorders of plasma-protein metabolism, not elsewhere classified; F41.9 Anxiety disorder, unspecified; G47.00 Insomnia, unspecified; I11.9 Hypertensive heart disease without heart failure; I70.0 Atherosclerosis of aorta; E11.65 Type 2 diabetes mellitus with hyperglycemia; R53.1 Weakness; F32.A Depression, unspecified; M19.90 Unspecified osteoarthritis, unspecified site; Z68.22 Body mass index [BMI] 22.0-22.9, adult; Z79.84 Long term (current) use of oral hypoglycemic drugs
CPT/HCPCS: 36415; 36600; 70030-TC; 71045; 71275; 83605; 83615; 83735; 84100; 84443; 85025; 86140; 86480; 86704; 86803; 87040; 87070; 87328; 87340; 87400; 87806; 93005; 94760; 97161; A4663; A6209; G0378; J0456; J1100; J1650; J1815; J1956; J2060; J2270; J3262; J3490; J3535; J7040; J7050; J7060; J8499; Q9967; U0003